=== PATIENT | male | born 1950 | race Caucasian/White ===

== ENCOUNTER 2018-12-06 08:39 | Outpatient (CLI) | payer MEDICARE, OTHER ==
--- NOTE | 2018-12-06 09:34 | RAD ---
Exam: There are swallow: HISTORY: Difficulty swallowing, bread and pills get stuck FINDINGS: There were several episodes of penetration noted with swallowing. No lexx aspiration. Consider follo w-up modified barium swallow with speech therapist for further assessment in this regard. Very small right-sided cervical esophageal diverticulum. Slight indentation of the posterior cervical esop hagus from anterior disc osteophytes of the cervical spine. No evidence for reflux. No stricture, ulcer, or mass. IMPRESSION: Several episodes of penetration, consider follow-up modified barium swallow with speech therapist. Ve ry small right-sided cervical esophageal diverticulum. Minimal dorsal indention of the cervical esophagus from disc osteophytes.
== END 2018-12-06 08:40 | disposition home or self-care (01) ==
LOC: RAD 08:39
PROVIDERS: ATTEND Internal Medicine Gastroenterology
DX: R13.10 Dysphagia, unspecified (principal); Q39.6 Congenital diverticulum of esophagus; M25.78 Osteophyte, vertebrae
CPT/HCPCS: 74220

== ENCOUNTER 2019-11-21 09:49 | Outpatient (CLI) | payer MEDICARE, OTHER ==
[2019-11-21 11:02] LABS: Hemoglobin 13.1 g/dL (14.0-18.0); Mean Corpuscular HGB CONC 33.2 g/dL (32.0-36.0); Mean Corpuscular Hemoglobin 32.2 pg (27.0-31.0); Mean Corpuscular Volume 96.8 fL (78.0-98.0); Mean Platelet Volume 6.7 fL (7.4-10.4); Platelet Count 307 thou/uL (130-400); RBC Distribution Width 12.1 % (11.5-14.5); Red Blood Cell (RBC) Count 4.08 mill/uL (4.70-6.10); White Blood Cell (WBC) Count 7.6 thou/uL (4.8-10.8)
[2019-11-21 11:13] LABS: PTT 24.8 SEC (22.9-36.1)
--- NOTE | 2019-11-21 16:49 | EKG ---
Test Reason : Blood Pressure : / mmHG Vent. Rate : 086 BPM Atrial Rate : 086 BPM P-R Int : 152 ms QRS Dur : 092 ms QT Int : 366 ms P-R-T Axes : 078 078 060 degrees QTc Int : 437 ms Normal sinus rhythm RSR' or QR pattern in V1 suggests right ventricular conduction delay Borderline ECG When compared with ECG of 06-FEB-1997 12:58, RSR' pattern in V1 is now Present Confirmed by Harpreet JN ([id number]) on 11/21/2019 4:49:28 PM Referred By: Confirmed By:Harpreet [place]
== END 2019-11-21 09:50 | disposition home or self-care (01) ==
LOC: LABBT 09:49
PROVIDERS: ATTEND Urology
DX: Z01.818 Encounter for other preprocedural examination (principal); N32.9 Bladder disorder, unspecified
CPT/HCPCS: 85027; 85610; 85730; 93005; 93010

== ENCOUNTER 2019-11-25 05:58 | Day surgery (SDC) | payer MEDICARE, OTHER ==
[2019-11-21 10:22] VITALS: BMI 21.5
[2019-11-25] MEDS ORDERED: Famotidine/PF 20 mg/2ml Vial ONE (06:39)
[2019-11-25] MEDS ORDERED: Fentanyl 100 MCG/2 ML VIAL ONE (06:39)
[2019-11-25] MEDS ORDERED: SUGAMMADEX SODIUM 200 MG/2 ML VIAL ONE (06:39)
[2019-11-25] MEDS ORDERED: Iothalamate Meglumine 60% 50 ML VIAL FS ONE (07:09)
[2019-11-25 07:10] LABS: Anion Gap 11 mmol/L (10-20); BUN (Urea Nitrogen) 19 mg/dL (8.4-25.7); Calc. Creatinine Clearance 53 mL/min (70-130); Calcium 9.6 mg/dL (7.8-10.44); Carbon Dioxide 29 mmol/L (23-31); Chloride 103 mmol/L (98-107); Estimated GFR-MDRD 56; Glucose 102 mg/dL (80-115); Potassium 3.6 mmol/L (3.5-5.1); Sodium 139 mmol/L (136-145)
[2019-11-25] MEDS ORDERED: Midazolam HCl 2 mg/2 ml Vial ONE (07:16)
[2019-11-25] MEDS ORDERED: Levofloxacin 500 mg/D5W 100 ml Premix Bag ONE (07:23)
--- NOTE | 2019-11-25 09:04 | RAD ---
EXAM: XR IVP Retrograde PROVIDED CLINICAL HISTORY: Bladder tumor COMPARISON: None FINDINGS: Single spot fluoroscopic image of a portion of the abdomen submitted. Side is not labeled. Partially opacified renal collecting system and partially visualized ureter appear grossly unremarkable. Correlate with real-time findings. IMPRESSION: As above.
[2019-11-25] MEDS ORDERED: Oxybutynin 5 MG TAB ONE (09:21)
[2019-11-25] MEDS ORDERED: Phenazopyridine HCl 97.5 MG TABLET ONE (09:21)
--- NOTE | 2019-11-25 09:32 | OP ---
DATE OF PROCEDURE: 11/25/2019 PREOPERATIVE DIAGNOSIS: Bladder tumor. POSTOPERATIVE DIAGNOSIS: Bladder tumor. PROCEDURES PERFORMED: Transurethral resection of large bladder tumor, left retrograde pyelogram. ANESTHESIA: General. COMPLICATIONS: None. ESTIMATED BLOOD LOSS: Minimal. SPECIMENS: 1. Bladder tumor. 2. Deep biopsy. DESCRIPTION OF PROCEDURE: After informed consent, the patient was taken to the operating room, transferred to the table under his own power. Anesthesia was established. A time-out was performed showing the correct patient, site, and procedure. Preoperative antibiotics were administered. He was prepped and draped in a modified lithotomy position. His left hip does not flex at all and so essentially his left leg was left in the supine position straight out, which made resecting the right wall very difficult. The cystoscope was inserted and negotiated into his bladder. There was indeed a large tumor emanating from the right bladder neck extending well up the right wall about 1/2 to [address] the dome on the right side. I was unable to identify either ureteral orifice. I then switched to the resectoscope and was able to resect probably 80% of the tumor. Resection was limited by the fact that I could not easily access the right wall with his left leg in the way. I was able to identify the left ureter by resecting tumor overlying it. I did not find the right ureter. Meticulous hemostasis was then achieved and the You[employer] evacuator was used to remove all specimen, which was passed off. I then took one final biopsy from the deep aspect of the bladder tumor. I did limit deep resection near the trigone and bladder neck due to his history of requiring a colostomy after rectal injury during bladder neck sphincter. I then switched back to the cystoscope and was able to perform a left retrograde pyelogram showing good filling of the ureter with possibly slight hydroureter and minimal to no hydronephrosis. There were no filling defects in the ureter. The scope was then withdrawn. An 18-[place] Palumbo catheter was placed draining light pink urine. This was connected to leg bag after filling the balloon with 10 mL. He was then awoken from anesthesia and transferred back to his hospital bed and taken to PACU in stable condition, where he will discharge home upon recovery. Job ID: [id number]
[2019-11-25] MEDS ORDERED: PROPOFOL 200 MG/20 ML VIAL ONE (10:04)
[2019-11-25] MEDS ORDERED: Ketorolac Tromethamine 30 MG/ML VIAL ONE (10:04)
[2019-11-25] MEDS ORDERED: Ondansetron PF 4 MG/2 ML Vial ONE (10:04)
[2019-11-25] MEDS ORDERED: Lidocaine 1% PF 5 ML VIAL ONE (10:04)
[2019-11-25] MEDS ORDERED: Dexamethasone 20 MG/5 ML VIAL ONE (10:04)
[2019-11-25] MEDS ORDERED: Glycopyrrolate 0.2 MG/ML 5 ML SYRINGE ONE (10:04)
[2019-11-25] MEDS ORDERED: Metoclopramide HCl 10 MG/2 ML VIAL ONE (10:04)
[2019-11-25] MEDS ORDERED: Rocuronium Bromide 10 MG/ML (10ML VIAL) ONE (10:04)
== END 2019-11-25 11:00 | disposition home or self-care (01) ==
LOC: SDC 05:58
PROVIDERS: ATTEND Urology
PROC: 0T5B8ZZ Destruction of Bladder, Via Natural or Artificial Opening Endoscopic (ICD-10-PCS; principal; 2019-11-25)
PROC: BT1F1ZZ Fluoroscopy of Left Kidney, Ureter and Bladder using Low Osmolar Contrast (ICD-10-PCS; 2019-11-25)
DX: C67.8 Malignant neoplasm of overlapping sites of bladder (principal); K59.2 Neurogenic bowel, not elsewhere classified; N31.9 Neuromuscular dysfunction of bladder, unspecified; G47.9 Sleep disorder, unspecified; Z79.899 Other long term (current) drug therapy; Z88.8 Allergy status to other drugs, medicaments and biological substances; Z98.890 Other specified postprocedural states
CPT/HCPCS: 36415; 74420; 80048; 88307; C1758; J1100; J1885; J1956; J2001; J2250; J2405; J2704; J2765; J3010; S0028

== ENCOUNTER 2019-12-10 08:52 | Outpatient (CLI) | payer MEDICARE, OTHER ==
[2019-12-10] MEDS ORDERED: Iopamidol 370 76% 100 ML VIAL ONE (09:01)
[2019-12-10] MEDS ORDERED: Iopamidol 370 76% 50 ML VIAL FS ONE (09:01)
--- NOTE | 2019-12-10 14:20 | CT ---
CHEST AND ABDOMEN AND PELVIC CT SCAN WITHOUT IV CONTRAST: Date: 12/10/2019 HISTORY: Bladder cancer. Status post TURP, sphincterotomy, as well as other surgeries, neoplasm lateral wall. FINDINGS: No evidence for pulmonary metastasis. No pleural effusion or pericardial effusion. No mediastinal mas s or adenopathy. Three vessel coronary artery calcific disease. There is a 2.0 cm diameter posterior left-sided thyroid nodule extending into the upper substernal region of the chest. Nonemergent follow -up thyroid ultrasound should be considered. There are several low attenuation foci within the liver. The largest is in the medial aspect of the l eft lobe measuring 1.4 cm in size, possibly a cyst but incompletely characterized. Evidence for a gal lstone without gallbladder wall thickening or pericholecystic fluid or CT evidence for acute cholecys titis. The pancreas and spleen appear unremarkable. Adrenal glands appear unremarkable. Moderate to s evere right renal hydronephrosis with dilatation of the upper renal collecting system and dilated ure ter down to the level of the bladder. Mild dilatation of the left upper renal collecting system and r enal pelvis. Fairly marked very heterogeneous abnormal bladder wall thickening bilaterally, but mostl y on the right side posteriorly, including the right ureterovesical junction region with some bladder wall calcifications or calculi. This focal abnormal soft tissue fullness certainly appears to be the etiology for the right renal hydroureteronephrosis. This is certainly consistent with residual neopl asm. No evidence for overt adenopathy. No abscess or abnormal fluid collection. There is very extensive heterotopic ossification involving both the left and right hip and parapelvic and parafemoral regions, worse on the left side. IMPRESSION: 1. Very irregular-shaped focal urinary bladder wall thickening, evidence for persistent bladder neop lastic mass, resulting in obstruction at the right ureteropelvic junction and prominent proximal righ t ureteral hydronephrosis. 2. No overt metastasis. 3. Cholelithiasis without acute cholecystitis. 4. Several low attenuation foci within the livre, incompletely characterized. 5. Very exuberant heterotopic ossification involving the right and left hips and adjacent regions, w orse on left side. 6. Other findings as above. POS: [facility]
--- NOTE | 2019-12-10 15:59 | NM ---
BONE SCAN: The patient was given 32 mCi of Technetium labelled MDP IV. Whole body skeletal images were obtained . INDICATION: Malignant neoplasm lateral wall of bladder. Recent bladder cancer diagnosis October 2019. The patient has a history of heterotopic ossification diagnosed in 2000. Correlation is made to CT scan from earlier today which does demonstrate heterotopic bone formation. Comparison is made to a prior bone scan from 2010 from an outside institution. FINDINGS: There is increased activity seen overlying the right ileum which is stable from the prior bone scan. Some soft tissue activity and both proximal thighs appear stable. No other abnormal osseous activit y. No interval change from the prior exam. Mild scoliotic curvature of the spine appears stable. 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 Bone scan findings appear stable from 2011. No evidence of osseous metastatic disease. POS: [facility]
== END 2019-12-10 08:53 | disposition home or self-care (01) ==
LOC: CT 08:52
PROVIDERS: ATTEND Urology
DX: C67.2 Malignant neoplasm of lateral wall of bladder (principal); N32.89 Other specified disorders of bladder; K80.20 Calculus of gallbladder without cholecystitis without obstruction; R93.2 Abnormal findings on diagnostic imaging of liver and biliary tract; N13.1 Hydronephrosis with ureteral stricture, not elsewhere classified
CPT/HCPCS: 71260; 74177; 78306; A9503; Q9967

== ENCOUNTER 2019-12-26 14:37 | Outpatient (CLI) | payer MEDICARE, OTHER ==
--- NOTE | 2019-12-26 17:41 | RAD ---
XR Chest Pa Lat STANDARD HISTORY: Preoperative evaluation, bladder cancer COMPARISON: None FINDINGS: The heart size is normal. The lungs are well expanded without focal areas of consolidation, pneumothorax or pleural effusions. There are degenerative changes in the spine and shoulders. IMPRESSION: No radiographic evidence of acute cardiopulmonary process.
[2019-12-26 17:44] LABS: #Eosinphils 0.2 thou/uL (0.0-0.7); #Lymphocytes 1.3 thou/uL (1.20-3.40); #Monocytes 0.8 thou/uL (0.11-0.59); #Neutrophils 6.3 thou/uL (1.40-6.50); %Basophils 0.3 % (0.0-1.0); %Eosinophils 2.8 % (0.0-10.0); %Lymphocytes 14.6 % (21.0-51.0); %Monocytes 9.6 % (0.0-10.0); %Neutrophils 72.7 % (42.0-75.0); Hemoglobin 11.3 g/dL (14.0-18.0); Mean Corpuscular HGB CONC 31.5 g/dL (32.0-36.0); Mean Corpuscular Hemoglobin 30.5 pg (27.0-31.0); Mean Corpuscular Volume 96.8 fL (78.0-98.0); Mean Platelet Volume 6.6 fL (7.4-10.4); Platelet Count 373 thou/uL (130-400); RBC Distribution Width 12.2 % (11.5-14.5); Red Blood Cell (RBC) Count 3.71 mill/uL (4.70-6.10); White Blood Cell (WBC) Count 8.7 thou/uL (4.8-10.8)
[2019-12-26 18:02] LABS: Anion Gap 15 mmol/L (10-20); BUN (Urea Nitrogen) 28 mg/dL (8.4-25.7); Calc. Creatinine Clearance 0 mL/min (70-130); Calcium 9.7 mg/dL (7.8-10.44); Carbon Dioxide 25 mmol/L (23-31); Chloride 100 mmol/L (98-107); Estimated GFR-MDRD 52; Glucose 105 mg/dL (80-115); Potassium 4.3 mmol/L (3.5-5.1); Sodium 136 mmol/L (136-145)
[2019-12-27 13:14] LABS: SARS-CoV-2 MS2 Positive; SARS-CoV-2 N Gene Negative; SARS-CoV-2 S Gene Negative; SARS-CoV-2 orf1ab Negative
== END 2019-12-26 14:38 | disposition home or self-care (01) ==
LOC: LABBT 14:37
PROVIDERS: ATTEND Specialist
DX: Z01.818 Encounter for other preprocedural examination (principal); Z11.59 Encounter for screening for other viral diseases; C67.9 Malignant neoplasm of bladder, unspecified
CPT/HCPCS: 71046; 78815; 80048; 85025; A9552; U0002; 87635; U0003

== ENCOUNTER 2019-12-30 08:50 | Day surgery (SDC) | payer MEDICARE, OTHER ==
[2019-12-26 16:53] VITALS: BMI 21.2
[2019-12-30] MEDS ORDERED: Lidocaine 1% w/Epinephrine 1:100K 20 ML VIAL ONE (09:33)
[2019-12-30] MEDS ORDERED: Bupivacaine 0.25% HCL 30 ML VIAL ONE (09:33)
[2019-12-30] MEDS ORDERED: Propofol 500 MG/50 ML VIAL ONE (10:32)
--- NOTE | 2019-12-30 12:50 | RAD ---
Exam: Chest one view HISTORY:Status post Mediport placement. Evaluate for pneumothorax. Comparison: 12/26/2019 FINDINGS: Lines and tubes: Interval placement of a right-sided Mediport catheter with the distal tip in the exp ected region of the superior vena cava. Cardiac silhouette: Normal Aorta: Unremarkable Pulmonary vessels: Normal Costophrenic angles: Clear LUNGS: No masses or consolidation. Stable hyperinflation. Pneumothorax: None Osseous abnormalities: None IMPRESSION: 1. Interval placement of a right-sided Mediport catheter. 2. No pneumothorax
--- NOTE | 2019-12-31 13:49 | OP ---
DATE OF PROCEDURE: 12/30/2019 PREOPERATIVE DIAGNOSIS: Bladder cancer. POSTOPERATIVE DIAGNOSIS: Bladder cancer. PROCEDURE PERFORMED: Placement of right subclavian low-profile power compatible MediPort. ANESTHESIA: General with laryngeal mask airway. INDICATIONS FOR PROCEDURE: Patient is a 69-year-old white male. He had recently been diagnosed with bladder cancer. MediPort has been requested for chemotherapy administration. DESCRIPTION OF OPERATION: Informed consent was obtained. The patient was taken to the operating room where total intravenous anesthesia was obtained with the patient in supine position. Right periclavicular area was prepped with ChloraPrep and draped in sterile fashion. Local anesthetic was infiltrated and a large-gauge needle was passed under the clavicle in the subclavian vein. Guidewire was passed through the needle and fluoroscopically confirmed to enter the superior vena cava. Additional local anesthetic was infiltrated and transverse incision was created based on needle insertion site. A subcutaneous pocket was dissected inferiorly. Introducer dilator was passed over the guidewire under fluoroscopic guidance. The guidewire and dilator were removed, and the catheter was passed through the introducer. The tip of the catheter was positioned at the atriocaval junction and the catheter was trimmed to the appropriate length and secured to the locking hub of the MediPort. The port was then placed in the subcutaneous pocket where it was secured to the pectoral fascia with 2 interrupted sutures of 3-0 Prolene. The incision was then closed in layers with 3-0 and 4-0 Monocryl. Additional local anesthetic was infiltrated. The port was cannulated with a Rivera needle and it aspirated blood freely and was flushed with heparinized saline. Dermabond was placed externally on the skin incision. There were no complications. Blood loss was negligible. The patient tolerated the procedure well and was taken to recovery room in stable condition. FINDINGS: I placed this uneventfully into the right subclavian vein. A low-profile port was selected secondary to his body habitus. The procedure was uneventful. Fluoroscopy was used throughout the procedure. There were no complications. Patient was taken to recovery room in stable condition. Job ID: [id number]
== END 2019-12-30 13:25 | disposition home or self-care (01) ==
LOC: SDC 08:50
PROVIDERS: ATTEND Specialist
PROC: 02HV33Z Insertion of Infusion Device into Superior Vena Cava, Percutaneous Approach (ICD-10-PCS; principal; 2019-12-30)
PROC: B518ZZA Fluoroscopy of Superior Vena Cava, Guidance (ICD-10-PCS; 2019-12-30)
DX: C67.9 Malignant neoplasm of bladder, unspecified (principal); G82.50 Quadriplegia, unspecified; S14.102S Unspecified injury at C2 level of cervical spinal cord, sequela; Z79.899 Other long term (current) drug therapy; Z88.8 Allergy status to other drugs, medicaments and biological substances; V97.89 Other air transport accidents, not elsewhere classified
CPT/HCPCS: 36561; 71045; C1788; J0690; J1642; J2704; S0020

== ENCOUNTER 2020-02-23 11:47 | Day surgery (SDC) | payer MEDICARE, OTHER ==
[2020-02-23] MEDS ORDERED: Sodium Chloride 0.9% 30 ML ONE (12:20)
[2020-02-23] MEDS ORDERED: diphenhydrAMINE 25 MG CAP PO SCH (13:00)
[2020-02-23] MEDS ORDERED: Acetaminophen 500 MG TAB PO SCH (13:00)
[2020-02-23 16:01] VITALS: BP 144/73; TEMP 98
== END 2020-02-23 16:02 | disposition home or self-care (01) ==
LOC: ONC/OP 11:47
PROVIDERS: ATTEND Internal Medicine Hematology & Oncology
PROC: 30233N1 Transfusion of Nonautologous Red Blood Cells into Peripheral Vein, Percutaneous Approach (ICD-10-PCS; principal; 2020-02-23)
DX: D64.9 Anemia, unspecified (principal); D69.6 Thrombocytopenia, unspecified
CPT/HCPCS: 36415; 36430; 86850; 86900; 86901; J1642; P9016; Q0163

== ENCOUNTER 2020-02-27 22:15 | Inpatient (IN) | payer MEDICARE, OTHER ==
[2020-02-27] MEDS ORDERED: Vancomycin 1 GM/200 ML BAG ONE (23:16)
[2020-02-27] MEDS ORDERED: Acetaminophen 500 MG TAB ONE (23:16)
[2020-02-27] MEDS ORDERED: Cefepime 2 GM VIAL ONE (23:16)
[2020-02-27 23:39] LABS: Band 24 % (5-11); Hemoglobin 8.3 g/dL (14.0-18.0); Lymphocytes 6 % (21-51); MDiff Complete? YES; Mean Corpuscular Hemoglobin 32.3 pg (27.0-31.0); Mean Corpuscular Volume 95.2 fL (78.0-98.0); Mean Platelet Volume 8.8 fL (7.4-10.4); Monocytes 6 % (0-10); Neutrophil 64 % (42-75); Platelet Count 45 thou/uL (130-400); Platelet Morphology Comment Appears Decreased; RBC Distribution Width 14.7 % (11.5-14.5); Red Blood Cell (RBC) Count 2.56 mill/uL (4.70-6.10); White Blood Cell (WBC) Count 16.3 thou/uL (4.8-10.8)
[2020-02-27 23:48] LABS: ALT (SGPT) 9 U/L (8-55); AST (SGOT) 15 U/L (5-34); Albumin 3.8 g/dL (3.4-4.8); Alkaline Phosphatase 146 U/L (40-110); Anion Gap 15 mmol/L (10-20); BUN (Urea Nitrogen) 19 mg/dL (8.4-25.7); Bilirubin, Total 0.4 mg/dL (0.2-1.2); Calc. Creatinine Clearance 0 mL/min (70-130); Calcium 8.9 mg/dL (7.8-10.44); Carbon Dioxide 21 mmol/L (23-31); Chloride 100 mmol/L (98-107); Estimated GFR-MDRD 57; Globulin 3.4 g/dL (2.4-3.5); Glucose 131 mg/dL (80-115); Potassium 4.2 mmol/L (3.5-5.1); Protein, Total 7.2 g/dL (5.8-8.1); Sodium 132 mmol/L (136-145)
[2020-02-28 00:02] LABS: Bacteria/HPF 3+ HPF (None Seen); Bilirubin Negative (Negative); Blood, Urine 3+ (Negative); Clarity Extra Turbid (Clear); Glucose, Urine (Dipstick) Normal (Negative); Ketone, Urine Negative (Negative); Leukocyte 500 Leu/uL (Negative); Nitrite 1+ (Negative); Protein, Urine (Dipstick) 200 mg/dL (Neg-Trace); RBC/HPF Greater than 50 HPF (0-3); Squamous Epithelial None Seen HPF (0-3); Urobilinogen Normal mg/dL (Less than 2); WBC/HPF Greater than 50 HPF (0-3)
[2020-02-28 00:11] LABS: CKMB 0.7 ng/mL (0-6.6)
--- NOTE | 2020-02-28 00:29 | RAD ---
EXAM: CHEST ONE VIEW HISTORY: Fever COMPARISON: 12/30/2019 FINDINGS: Right subclavian Mediport catheter remains in place. Surgical clips are again seen overlying the lowe r mediastinum and epigastric region. Cardiac silhouette and pulmonary vasculature are within normal limits. The lungs are clear. Bilateral glenohumeral osteoarthropathy is again present. IMPRESSION: No acute cardiopulmonary process.
[2020-02-28] MEDS ORDERED: Acetaminophen 650 MG Suppository PR PRN (00:41)
[2020-02-28] MEDS ORDERED: HYDROcodone/Acetaminophen 5/325 mg Tablet PO PRN (00:41)
[2020-02-28] MEDS ORDERED: Ondansetron ODT 4 MG TAB PO PRN (00:41)
[2020-02-28] MEDS ORDERED: Ondansetron PF 4 MG/2 ML Vial IVP PRN (00:41)
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
[2020-02-28 05:43] LABS: Band 29 % (5-11); Hemoglobin 7.7 g/dL (14.0-18.0); Lymphocytes 7 % (21-51); MDiff Complete? YES; Mean Corpuscular HGB CONC 33.3 g/dL (32.0-36.0); Mean Corpuscular Hemoglobin 31.8 pg (27.0-31.0); Mean Corpuscular Volume 95.6 fL (78.0-98.0); Mean Platelet Volume 8.3 fL (7.4-10.4); Monocytes 10 % (0-10); Neutrophil 54 % (42-75); Platelet Count 35 thou/uL (130-400); Platelet Morphology Comment Appears Decreased; RBC Distribution Width 14.8 % (11.5-14.5); Red Blood Cell (RBC) Count 2.42 mill/uL (4.70-6.10); White Blood Cell (WBC) Count 13.8 thou/uL (4.8-10.8)
[2020-02-28 05:53] LABS: ALT (SGPT) 11 U/L (8-55); AST (SGOT) 12 U/L (5-34); Albumin 3.4 g/dL (3.4-4.8); Alkaline Phosphatase 129 U/L (40-110); Anion Gap 12 mmol/L (10-20); BUN (Urea Nitrogen) 17 mg/dL (8.4-25.7); Bilirubin, Total 0.3 mg/dL (0.2-1.2); Calc. Creatinine Clearance 0 mL/min (70-130); Calcium 8.6 mg/dL (7.8-10.44); Carbon Dioxide 22 mmol/L (23-31); Chloride 102 mmol/L (98-107); Estimated GFR-MDRD 60; Globulin 2.8 g/dL (2.4-3.5); Glucose 125 mg/dL (80-115); Protein, Total 6.2 g/dL (5.8-8.1); Sodium 132 mmol/L (136-145)
[2020-02-28] MEDS: Sodium Chloride 0.9% 1,000 ML IV SCH ×3 (06:28→21:16)
[2020-02-28] MEDS: Acetaminophen 325 MG TAB PO PRN ×4 (06:30→21:20)
[2020-02-28 06:34] VITALS: BMI 21.2
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
[2020-02-28] MEDS ORDERED: Iopamidol-370 76% 500 ML 1 ML ONE (12:04)
--- NOTE | 2020-02-28 14:51 | PDOC.EVN ---
Event Note - Event Note Event Note: Patient was seen and examined. He was having some rigors at the time of my exam. States that his only real concern. States it takes a lot out of than when he has these chills. Urine culture is growing presumptive Klebsiella and Enterobacter. He received bank cefepime and Levaquin in the emergency department. He is currently still covered with the Vanco and Levaquin is ongoing. Will await cultures and sensitivities. Treat fever as needed.
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
[2020-02-29] MEDS: Acetaminophen 325 MG TAB PO PRN ×4 (02:40→21:31)
[2020-02-29 09:35] LABS: #Lymphocytes 0.7 thou/uL (1.20-3.40); #Neutrophils 6.8 thou/uL (1.40-6.50); %Basophils 0.2 % (0.0-1.0); %Eosinophils 0.2 % (0.0-10.0); %Lymphocytes 7.7 % (21.0-51.0); %Monocytes 11.5 % (0.0-10.0); %Neutrophils 80.4 % (42.0-75.0); Hemoglobin 7.3 g/dL (14.0-18.0); Mean Corpuscular HGB CONC 33.9 g/dL (32.0-36.0); Mean Corpuscular Hemoglobin 32.7 pg (27.0-31.0); Mean Corpuscular Volume 96.4 fL (78.0-98.0); Mean Platelet Volume 8.4 fL (7.4-10.4); Platelet Count 37 thou/uL (130-400); RBC Distribution Width 14.5 % (11.5-14.5); Red Blood Cell (RBC) Count 2.22 mill/uL (4.70-6.10); White Blood Cell (WBC) Count 8.4 thou/uL (4.8-10.8)
[2020-02-29 09:40] LABS: Anion Gap 10 mmol/L (10-20); BUN (Urea Nitrogen) 15 mg/dL (8.4-25.7); Calc. Creatinine Clearance 49 mL/min (70-130); Calcium 8.6 mg/dL (7.8-10.44); Carbon Dioxide 25 mmol/L (23-31); Chloride 103 mmol/L (98-107); Estimated GFR-MDRD 54; Glucose 131 mg/dL (80-115); Sodium 134 mmol/L (136-145)
[2020-02-29] MEDS ORDERED: Bisacodyl 10 MG SUPP PR PRN (10:34)
--- NOTE | 2020-02-29 13:06 | PDOC.HOSPP ---
- Subjective Encounter Date: 02/29/20 Subjective: Patient is feeling some better today. He is concerned about his bowel regimen. He has a fairly specific routine given his quadriplegia. He typically has a Dulcolax suppository every couple of days. He then occasionally require some digital stimulation. His typically helps him with that regimen. He also takes docusate sodium twice daily. - Objective Vital Signs & Weight: Vital Signs (12 hours) Temp Pulse Resp BP BP Pulse Ox 02/29/20 12:00 98.2 F 94 22 H 108/70 97 02/29/20 07:27 98.3 F 96 22 H 125/68 97 02/29/20 06:01 99.8 F H 02/29/20 04:31 101.3 F H 100 16 106/57 L 94 L 02/29/20 03:00 100.2 F H Weight Weight 144 lb I&O: 02/28/20 02/29/20 03/01/20 06:59 06:59 06:59 Intake Total 1950 Output Total 2300 Balance -350 Result Diagrams: 02/29/20 09:10 02/29/20 09:10 Hospitalist ROS - Medication Medications: Active Medications Generic Name Dose Route Start Last Admin Trade Name Freq PRN Reason Stop Dose Admin Acetaminophen 650 mg 02/28/20 00:41 02/29/20 12:49 Tylenol PO 650 mg Q4H PRN Administration Headache/Fever/Mild Pain (1-3) Levofloxacin 750 mg/ Device 150 mls @ 100 mls/hr 02/29/20 06:00 02/29/20 05: 39 IVPB 150 mls Q24HR MYA Administration Sodium Chloride 1,000 mls @ 70 mls/hr 02/28/20 01:00 02/28/20 21:16 Normal Saline 0.9% IV 1,000 mls .[id number] MYA Administration Sodium Chloride 10 ml 02/28/20 09:00 02/29/20 09:56 Flush - Normal Saline IVF Not Given Q12HR MYA - Exam General Appearance: NAD, awake alert General - other findings: Pale Heart: RRR, no murmur, no gallops, no rubs, normal peripheral pulses Respiratory: CTAB, no wheezes, no rales, no ronchi, normal chest expansion, no tachypnea, normal percussion Gastrointestinal: soft, non-tender, non-distended, normal bowel sounds, no palpable masses, no hepatomegaly, no splenomegaly, no bruit Extremities: no cyanosis, no clubbing, no edema Neurological - other findings: Paraplegia Psychiatric: normal affect, normal behavior, A&O x 3 Hosp A/P (1) UTI due to Klebsiella species Code(s): N39.0 - URINARY TRACT INFECTION, SITE NOT SPECIFIED; B96.89 - OTH BACTERIAL AGENTS THE CAUSE OF DISEASES CLASSD ELSWHR Status: Acute (2) Bacteremia due to Klebsiella pneumoniae Code(s): R78.81 - BACTEREMIA; B96.1 - KLEBSIELLA PNEUMONIAE THE CAUSE OF DISEASES CLASSD ELSWHR Status: Acute (3) Anemia due to chemotherapy Code(s): D64.81 - ANEMIA DUE TO ANTINEOPLASTIC CHEMOTHERAPY; T45.1X5A - ADVERSE EFFECT OF ANTINEOPLASTIC AND IMMUNOSUP DRUGS, INIT Status: Acute (4) Bladder cancer Status: Chronic (5) Chronic incomplete quadriplegia Code(s): G82.50 - QUADRIPLEGIA, UNSPECIFIED Status: Chronic (6) Complicated UTI (urinary tract infection) Code(s): N39.0 - URINARY TRACT INFECTION, SITE NOT SPECIFIED Status: Acute (7) Sepsis Code(s): A41.9 - SEPSIS, UNSPECIFIED ORGANISM Status: Acute (8) Hydronephrosis Code(s): N13.30 - UNSPECIFIED HYDRONEPHROSIS Status: Acute (9) Hyponatremia Code(s): E87.1 - HYPO-OSMOLALITY AND HYPONATREMIA Status: Acute (10) Pancytopenia Code(s): D61.818 - OTHER PANCYTOPENIA Status: Acute (11) Chronic kidney disease, stage III (moderate) Code(s): N18.3 - CHRONIC KIDNEY DISEASE, STAGE 3 (MODERATE) Status: Acute - Plan Sepsis: Secondary to Klebsiella UTI and bacteremia. Hemodynamically stable. Klebsiella UTI: Patient has associated bacteremia. Urinary tract infection is complicated by the fact that he has a bladder mass. There is also evidence of some obstruction with hydronephrosis. He continues to be symptomatic and febrile. It is possible that the bladder mass causing the hydronephrosis might be preventing full clearing of the infection at this time. Doubtful that a urologist could stent around the tumor. We will add Rocephin 1 g IV every [address] Mosher. He has placed that order. If he does not significantly improve may need to consider urology consultation. Pancytopenia: Has pancytopenia from chemotherapy with associated severe anemia. He will be receiving a transfusion today. Paraplegia: Will replicate his bowel regimen and allow his to come up and visit to assist with that as needed. Chronic kidney disease stage III: Patient appears to be at his baseline renal function presently. Bladder cancer: Oncology following.
[2020-02-29] MEDS: cefTRIAXone\\ROCEPHIN 1 GM in Sodium Chloride 0.9% 100 ML IVPB SCH (15:06)
[2020-02-29] MEDS: Docusate 100 MG CAP PO SCH (21:31)
[2020-02-29] MEDS: Sodium Chloride 0.9% 1,000 ML IV SCH (23:48)
[2020-02-29] MEDS: Simethicone Chewable 80 MG TAB PO PRN (23:49)
[2020-03-01] MEDS: Acetaminophen 325 MG TAB PO PRN ×3 (02:32→23:46)
--- NOTE | 2020-03-01 02:53 | PRG ---
DATE OF SERVICE: 02/29/2020 The patient is continuing to run fever and is having chill at the time I examined him. He has temperature today 100.3. He has been on Levaquin. Both urine and blood cultures are positive for Klebsiella, which is sensitive to all the antibiotics tested including Levaquin. After discussing the case with Dr. Pradhan, I have added Rocephin to his regimen. His most recent CT scan showed enlargement of the mass in the bladder. He also has hydronephrosis, however is wondering if hydronephrosis was contributing to infection not clearing. I have asked for consultation from Dr. Pierce for his opinion regarding a stent placement for hydronephrosis. Job ID: [id number]
[2020-03-01 05:57] LABS: #Lymphocytes 1.2 thou/uL (1.20-3.40); #Monocytes 1.6 thou/uL (0.11-0.59); #Neutrophils 7.7 thou/uL (1.40-6.50); %Basophils 0.1 % (0.0-1.0); %Eosinophils 0.1 % (0.0-10.0); %Lymphocytes 11.3 % (21.0-51.0); %Monocytes 14.8 % (0.0-10.0); %Neutrophils 73.7 % (42.0-75.0); Hemoglobin 9.7 g/dL (14.0-18.0); Mean Corpuscular HGB CONC 32.9 g/dL (32.0-36.0); Mean Corpuscular Hemoglobin 30.2 pg (27.0-31.0); Mean Corpuscular Volume 91.9 fL (78.0-98.0); Mean Platelet Volume 9.1 fL (7.4-10.4); Platelet Count 62 thou/uL (130-400); RBC Distribution Width 15.3 % (11.5-14.5); Red Blood Cell (RBC) Count 3.22 mill/uL (4.70-6.10); White Blood Cell (WBC) Count 10.4 thou/uL (4.8-10.8)
[2020-03-01 06:14] LABS: Anion Gap 13 mmol/L (10-20); BUN (Urea Nitrogen) 15 mg/dL (8.4-25.7); Calc. Creatinine Clearance 50 mL/min (70-130); Calcium 8.9 mg/dL (7.8-10.44); Carbon Dioxide 23 mmol/L (23-31); Chloride 104 mmol/L (98-107); Estimated GFR-MDRD 55; Glucose 99 mg/dL (80-115); Sodium 136 mmol/L (136-145)
[2020-03-01] MEDS: Rosuvastatin 20 MG TAB PO SCH (09:52)
[2020-03-01] MEDS: Docusate 100 MG CAP PO SCH ×2 (09:52→21:13)
[2020-03-01] MEDS: Cholecalciferol 1,000 UNITS (25 MCG) TAB PO SCH (09:53)
[2020-03-01] MEDS: cefTRIAXone\\ROCEPHIN 1 GM in Sodium Chloride 0.9% 100 ML IVPB SCH (13:44)
[2020-03-01] MEDS: Sodium Chloride 0.9% 1,000 ML IV SCH ×2 (13:49→21:12)
--- NOTE | 2020-03-01 14:59 | PDOC.HOSPP ---
- Subjective Encounter Date: 03/01/20 Subjective: Generally feeling a little better. She still feels like he has chills from time to time. - Objective Vital Signs & Weight: Vital Signs (12 hours) Temp Pulse Pulse Resp BP BP BP 03/01/20 12:00 99.1 F 102 H 24 H 162/83 H 03/01/20 10:09 98.6 F 98 20 132/72 03/01/20 03:00 99.1 F 89 20 129/68 Pulse Ox 03/01/20 12:00 03/01/20 10:09 93 L 03/01/20 03:00 94 L Weight Weight 144 lb I&O: 02/29/20 03/01/20 03/02/20 06:59 06:59 06:59 Intake Total 1950 2079 Output Total 2302059 Balance -350 20 Result Diagrams: 03/01/20 05:34 03/01/20 05:34 Hospitalist ROS - Medication Medications: Active Medications Generic Name Dose Route Start Last Admin Trade Name Freq PRN Reason Stop Dose Admin Acetaminophen 650 mg 02/28/20 00:41 03/01/20 02:32 Tylenol PO 650 mg Q4H PRN Administration Headache/Fever/Mild Pain (1-3) Cholecalciferol 2,000 units 03/01/20 09:00 03/01/20 09:53 Vitamin D3 PO 2,000 units DAILY MYA Administration Docusate Sodium 100 mg 02/29/20 21:00 03/01/20 09:52 Colace PO 100 mg BID MYA Administration Levofloxacin 750 mg/ Device 150 mls @ 100 mls/hr 02/29/20 06:00 03/01/20 05: 32 IVPB 150 mls Q24HR MYA Administration Sodium Chloride 1,000 mls @ 70 mls/hr 02/28/20 01:00 03/01/20 13:49 Normal Saline 0.9% IV Not Given .[id number] MYA Ceftriaxone Sodium 1 gm/ 100 mls @ 200 mls/hr 02/29/20 14:00 03/01/20 13:44 Sodium Chloride IVPB 100 mls 1400 MYA Administration Rosuvastatin Calcium 40 mg 03/01/20 09:00 03/01/20 09:52 Crestor PO 40 mg DAILY MYA Administration Simethicone 80 mg 02/29/20 23:06 02/29/20 23:49 Mylicon Chewable PO 80 mg PCHS PRN Administration Gas Pain Sodium Chloride 10 ml 02/28/20 09:00 03/01/20 09:49 Flush - Normal Saline IVF Not Given Q12HR MYA - Exam General Appearance: NAD, awake alert General - other findings: Pale Heart: RRR, no murmur, no gallops, no rubs, normal peripheral pulses Respiratory: CTAB, no wheezes, no rales, no ronchi, normal chest expansion, no tachypnea, normal percussion Gastrointestinal: soft, non-tender, non-distended, normal bowel sounds, no palpable masses, no hepatomegaly, no splenomegaly, no bruit Extremities: no cyanosis, no clubbing, no edema Neurological - other findings: Incomplete paraplegia Musculoskeletal: generalized weakness Psychiatric: normal affect, normal behavior, A&O x 3 Hosp A/P (1) UTI due to Klebsiella species Code(s): N39.0 - URINARY TRACT INFECTION, SITE NOT SPECIFIED; B96.89 - OTH BACTERIAL AGENTS THE CAUSE OF DISEASES CLASSD ELSWHR Status: Acute (2) Bacteremia due to Klebsiella pneumoniae Code(s): R78.81 - BACTEREMIA; B96.1 - KLEBSIELLA PNEUMONIAE THE CAUSE OF DISEASES CLASSD ELSWHR Status: Acute (3) Anemia due to chemotherapy Code(s): D64.81 - ANEMIA DUE TO ANTINEOPLASTIC CHEMOTHERAPY; T45.1X5A - ADVERSE EFFECT OF ANTINEOPLASTIC AND IMMUNOSUP DRUGS, INIT Status: Acute (4) Bladder cancer Status: Chronic (5) Chronic incomplete quadriplegia Code(s): G82.50 - QUADRIPLEGIA, UNSPECIFIED Status: Chronic (6) Complicated UTI (urinary tract infection) Code(s): N39.0 - URINARY TRACT INFECTION, SITE NOT SPECIFIED Status: Acute (7) Sepsis Code(s): A41.9 - SEPSIS, UNSPECIFIED ORGANISM Status: Acute (8) Hydronephrosis Code(s): N13.30 - UNSPECIFIED HYDRONEPHROSIS Status: Acute (9) Hyponatremia Code(s): E87.1 - HYPO-OSMOLALITY AND HYPONATREMIA Status: Acute (10) Pancytopenia Code(s): D61.818 - OTHER PANCYTOPENIA Status: Acute (11) Chronic kidney disease, stage III (moderate) Code(s): N18.3 - CHRONIC KIDNEY DISEASE, STAGE 3 (MODERATE) Status: Acute (12) Palumbo catheter in place Code(s): Z97.8 - PRESENCE OF OTHER SPECIFIED DEVICES Status: Acute - Plan Sepsis: Secondary to Klebsiella UTI and bacteremia. Hemodynamically stable. Klebsiella UTI: Patient has associated bacteremia. Urinary tract infection is complicated by the fact that he has a bladder mass. There is also evidence of some obstruction with hydronephrosis. His fever curve is improving. It is possible that the bladder mass causing the hydronephrosis might be preventing full clearing of the infection at this time. Doubtful that a urologist could stent around the tumor. He also has an indwelling Palumbo catheter. We will add Rocephin 1 g IV every [address] Mosher. He has placed that order. Urology was consulted. ID consult pending Pancytopenia: Has pancytopenia from chemotherapy with associated severe anemia. Hemoglobin is better after transfusion. Paraplegia: I replicated his home bowel regimen and his came to assist him yesterday. That all worked out well. Chronic kidney disease stage III: Patient appears to be at his baseline renal function presently. Bladder cancer: Oncology following.
[2020-03-01] MEDS: Simethicone Chewable 80 MG TAB PO PRN (16:57)
--- NOTE | 2020-03-01 17:48 | PDOC.MOPN ---
Interval History: feeling better but still with fever - Vital Signs Vital Signs: Vital Signs (12 hours) Temp Pulse Resp BP BP Pulse Ox 03/01/20 12:00 99.1 F 102 H 24 H 162/83 H 03/01/20 10:09 98.6 F 98 20 132/72 93 L Weight Weight 144 lb - Physical Exam General: Alert, Oriented x3, No acute distress, Other (somewhat chronically ill appearing) HEENT: Atraumatic Lungs: Clear to auscultation Cardiovascular: Regular rate Abdomen: Normal bowel sounds, Soft, No tenderness Extremities: No edema, No tenderness/swelling Skin: No rashes Neurological: Normal speech Psych/Mental Status: Mental status NL - Labs Result Diagrams: 03/01/20 05:34 03/01/20 05:34 Lab results: Laboratory Results - last 24 hr 03/01/20 05:34: WBC 10.4, RBC 3.22 L, Hgb 9.7 L, Hct 29.6 L, MCV 91.9, MCH 30.2 , MCHC 32.9, RDW 15.3 H, Plt Count 62 L, MPV 9.1, Neutrophils % 73.7, Neutrophils % (Manual) Not Reportable, Lymphocytes % 11.3 L, Monocytes % 14.8 H , Eosinophils % 0.1, Basophils % 0.1, Neutrophils # 7.7 H, Lymphocytes # 1.2, Monocytes # 1.6 H, Eosinophils # 0.0, Basophils # 0.0 03/01/20 05:34: Sodium 136, Potassium 4.0, Chloride 104, Carbon Dioxide 23, Anion Gap 13, BUN 15, Creatinine 1.30, Estimated GFR (MDRD) 55, Glucose 99, Calcium 8.9 02/29/20 14:00: Blood Type O POSITIVE, Antibody Screen NEGATIVE, Crossmatch See Detail A/P - Problem (1) Anemia due to chemotherapy Current Visit: Yes Code(s): D64.81 - ANEMIA DUE TO ANTINEOPLASTIC CHEMOTHERAPY ; T45.1X5A - ADVERSE EFFECT OF ANTINEOPLASTIC AND IMMUNOSUP DRUGS, INIT Status : Acute (2) Bacteremia due to Klebsiella pneumoniae Current Visit: Yes Code(s): R78.81 - BACTEREMIA; B96.1 - KLEBSIELLA PNEUMONIAE THE CAUSE OF DISEASES CLASSD ELSWHR Status: Acute (3) Chronic kidney disease, stage III (moderate) Current Visit: Yes Code(s): N18.3 - CHRONIC KIDNEY DISEASE, STAGE 3 (MODERATE ) Status: Acute (4) Hydronephrosis Current Visit: Yes Code(s): N13.30 - UNSPECIFIED HYDRONEPHROSIS Status: Acute (5) Sepsis Current Visit: Yes Code(s): A41.9 - SEPSIS, UNSPECIFIED ORGANISM Status: Acute (6) Bladder cancer Current Visit: Yes Status: Chronic - Plan Plan: 1. continue antibiotics 2. urology consult, may need perc nephrostomy 3. unlikely to get more chemo 4. follow cbc
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
[2020-03-01] MEDS ORDERED: Oxybutynin 5 MG TAB PO PRN (23:23)
[2020-03-01] MEDS ORDERED: Oxybutynin 5 MG TAB PO SCH (23:30)
[2020-03-02] MEDS: Sodium Chloride 0.9% 1,000 ML IV SCH ×2 (02:01→13:57)
[2020-03-02 05:35] LABS: #Lymphocytes 1.3 thou/uL (1.20-3.40); #Monocytes 1.4 thou/uL (0.11-0.59); #Neutrophils 8.4 thou/uL (1.40-6.50); %Basophils 0.1 % (0.0-1.0); %Eosinophils 0.1 % (0.0-10.0); %Lymphocytes 11.5 % (21.0-51.0); %Monocytes 12.8 % (0.0-10.0); %Neutrophils 75.4 % (42.0-75.0); Hemoglobin 9.7 g/dL (14.0-18.0); Mean Corpuscular HGB CONC 32.8 g/dL (32.0-36.0); Mean Corpuscular Hemoglobin 30.1 pg (27.0-31.0); Mean Corpuscular Volume 91.8 fL (78.0-98.0); Mean Platelet Volume 8.9 fL (7.4-10.4); Platelet Count 104 thou/uL (130-400); RBC Distribution Width 15.1 % (11.5-14.5); Red Blood Cell (RBC) Count 3.24 mill/uL (4.70-6.10); White Blood Cell (WBC) Count 11.1 thou/uL (4.8-10.8)
[2020-03-02 05:41] LABS: Anion Gap 13 mmol/L (10-20); BUN (Urea Nitrogen) 14 mg/dL (8.4-25.7); Calc. Creatinine Clearance 52 mL/min (70-130); Calcium 8.5 mg/dL (7.8-10.44); Carbon Dioxide 21 mmol/L (23-31); Chloride 104 mmol/L (98-107); Estimated GFR-MDRD 57; Glucose 109 mg/dL (80-115); Potassium 3.6 mmol/L (3.5-5.1); Sodium 134 mmol/L (136-145)
--- NOTE | 2020-03-02 09:35 | ULT ---
ULTRASOUND DOPPLER DUPLEX VENOUS BILATERAL LOWER EXTREMITIES: DATE: 03/02/2020 HISTORY: 69-year-old male with bilateral lower extremity edema TECHNIQUE: Grayscale, color-flow, and spectral analysis, of major veins of bilateral lower extremities. FINDINGS: There is demonstration of blood flow with normal compressibility, of the bilateral common femoral, pr ofunda femoral, greater saphenous, femoral, popliteal, and posterior tibial, veins. IMPRESSION: Negative. No deep venous thrombosis of bilateral lower extremities.
[2020-03-02] MEDS: Cholecalciferol 1,000 UNITS (25 MCG) TAB PO SCH (10:26)
[2020-03-02] MEDS: Rosuvastatin 20 MG TAB PO SCH (10:27)
[2020-03-02] MEDS: Docusate 100 MG CAP PO SCH (10:27)
[2020-03-02 11:20] VITALS: TEMP 98.1
[2020-03-02] MEDS: cefTRIAXone\\ROCEPHIN 1 GM in Sodium Chloride 0.9% 100 ML IVPB SCH (13:17)
--- NOTE | 2020-03-02 14:24 | CON ---
DATE OF CONSULTATION: 03/02/2020 REASON FOR CONSULTATION: Urinary tract infection, hydronephrosis. CHIEF COMPLAINT: Fevers. HISTORY OF PRESENT ILLNESS: This is a 69-year-old male with a history of quadriplegia and neurogenic bladder, managed with a condom catheter with abdominal voiding. He has recently been diagnosed with high-grade muscle invasive bladder cancer, which is unresectable transurethrally. Initial diagnosis was November 25, 2019. He has now undergone 3 rounds of neoadjuvant chemotherapy with plans to visit with the urologic oncologist at [facility] later this month for consideration of radical cystectomy with ileal conduit. He was hospitalized on February 27 after developing fever up to 103 after having symptoms of malaise and fatigue throughout the week. He was started on Levaquin empirically and a urine culture has grown Klebsiella pneumoniae, which was also grown in his blood culture. He has been slowly improving with the Levaquin therapy, which is appropriate based on recent urine culture. He has continued to spike fevers through yesterday. Late yesterday, I was consulted and advised placement of Palumbo catheter. In speaking with him this morning, he did have spasms from the catheter, but these have been controlled with oxybutynin. Overall, he feels much better than yesterday with no further subjective fevers. He denies flank pain, nausea, or chest pains. CT scan has been reviewed showing right hydronephrosis and mild left hydronephrosis. The right hydronephrosis is not new and I was unable to identify the right ureter on cystoscopy when he underwent his transurethral resection in October. The left collecting system was normal on cystoscopy and I suspect the hydronephrosis is secondary to reflux. PAST MEDICAL HISTORY: Quadriplegia, neurogenic bladder and bowel, autonomic dysreflexia, and bladder cancer. PAST SURGICAL HISTORY: Artificial sphincter placement and removal, requiring colostomy; resection of urinary sphincter; transurethral resection of bladder tumor. FAMILY HISTORY: No history of urologic malignancy. SOCIAL HISTORY: Nonsmoker. No substance abuse. REVIEW OF SYSTEMS: Ten-point review of systems is negative except as mentioned in my HPI. PHYSICAL EXAMINATION: VITAL SIGNS: Afebrile since yesterday, vitals are stable. Good urine output. GENERAL: No acute distress, conversant. HEENT: Head; normocephalic and atraumatic. Sclerae are nonicteric. Extraocular movements intact. NECK: Supple. Trachea midline. LUNGS: Breathing unlabored, symmetric chest expansion. HEART: Regular rate and rhythm. ABDOMEN: Soft, nontender, and nondistended. BACK: No flank tenderness. No suprapubic tenderness. GENITOURINARY: Palumbo catheter in good position, draining clear urine without debris at this point. SKIN: Warm and dry. EXTREMITIES: Without clubbing, cyanosis, or edema. NEUROLOGIC: Alert and oriented x3. PSYCHIATRIC: Normal mood and affect. LABORATORY DATA: Urine culture growing Klebsiella. Blood culture growing Klebsiella. White count 11. Creatinine 1.25. IMAGING DATA: CT has been reviewed as described in my HPI. ASSESSMENT AND PLAN: High-grade muscle invasive bladder cancer, status post 3 rounds chemotherapy with plans for likely cystectomy with conduit at [facility] later this month, hydronephrosis, acute cystitis. The patient has improved clinically with placement of Palumbo catheter. My plan was to have nephrostomy tube placed if he did not improve clinically. At this point , we will hold off on nephrostomy tube as the patient tells me he would like to avoid this if at all possible. Currently with the catheter alone, he is not having fevers and is not having any flank pain, with normal kidney function. Palumbo catheter to remain until early next week. Agree with Levaquin therapy as outpatient at this point. Job ID: [id number] [facility]
--- NOTE | 2020-03-02 14:39 | PDOC.MOPN ---
Interval History: no fevers. Palumbo cath in place - Vital Signs Vital Signs: Vital Signs (12 hours) Temp Pulse Resp BP Pulse Ox 03/02/20 11:15 98.1 F 87 18 147/81 H 93 L 03/02/20 07:19 98.6 F 89 20 134/76 90 L Weight Weight 144 lb - Physical Exam General: Alert, Oriented x3, No acute distress HEENT: Atraumatic, PERRLA, EOMI, Mucous membr. moist/pink Lungs: Clear to auscultation, Normal air movement Cardiovascular: Regular rate Abdomen: Normal bowel sounds, Soft, No tenderness, No hepatospenomegaly, No masses Neurological: Normal speech - Labs Result Diagrams: 03/02/20 05:06 03/02/20 05:06 Lab results: Laboratory Results - last 24 hr 03/02/20 05:06: WBC 11.1 H, RBC 3.24 L, Hgb 9.7 L, Hct 29.7 L, MCV 91.8, MCH 30.1, MCHC 32.8, RDW 15.1 H, Plt Count 104 L, MPV 8.9, Neutrophils % 75.4 H, Neutrophils % (Manual) Not Reportable, Lymphocytes % 11.5 L, Monocytes % 12.8 H , Eosinophils % 0.1, Basophils % 0.1, Neutrophils # 8.4 H, Lymphocytes # 1.3, Monocytes # 1.4 H, Eosinophils # 0.0, Basophils # 0.0 03/02/20 05:06: Sodium 134 L, Potassium 3.6, Chloride 104, Carbon Dioxide 21 L, Anion Gap 13, BUN 14, Creatinine 1.25, Estimated GFR (MDRD) 57, Glucose 109, Calcium 8.5 Status: lab reviewed by me A/P - Problem (1) Bacteremia due to Klebsiella pneumoniae Current Visit: Yes Code(s): R78.81 - BACTEREMIA; B96.1 - KLEBSIELLA PNEUMONIAE THE CAUSE OF DISEASES CLASSD ELSWHR Status: Acute (2) Bladder cancer Current Visit: Yes Status: Chronic - Plan Plan: Abx per Dr. Matias khan to dc from our perspective. Follow-up [facility] as scheduled.
[2020-03-02 16:04] VITALS: BP 152/83
== END 2020-03-02 18:47 | disposition home or self-care (01) | DRG 871 ==
LOC: ERS 22:15 → T4-B 02-28 06:10
PROVIDERS: ADMIT Internal Medicine; ATTEND Internal Medicine
PROC: 30233N1 Transfusion of Nonautologous Red Blood Cells into Peripheral Vein, Percutaneous Approach (ICD-10-PCS; 2020-02-29)
PROC: 0T9B70Z Drainage of Bladder with Drainage Device, Via Natural or Artificial Opening (ICD-10-PCS; principal; 2020-03-01)
DX: A41.59 Other Gram-negative sepsis (principal); G82.52 Quadriplegia, C1-C4 incomplete; D61.810 Antineoplastic chemotherapy induced pancytopenia; E87.1 Hypo-osmolality and hyponatremia; N13.6 Pyonephrosis; Z66 Do not resuscitate; Z20.828 Contact with and (suspected) exposure to other viral communicable diseases; C67.9 Malignant neoplasm of bladder, unspecified; E86.1 Hypovolemia; N18.3 Chronic kidney disease, stage 3 (moderate); T45.1X5A Adverse effect of antineoplastic and immunosuppressive drugs, initial encounter; N31.9 Neuromuscular dysfunction of bladder, unspecified; Z79.899 Other long term (current) drug therapy
CPT/HCPCS: 36415; 36430; 71045; 71260; 74177; 80048; 80053; 81003; 81015; 82553; 83605; 84484; 85007; 85025; 85027; 86850; 86900; 86901; 87040; 87077; 87086; 87149; 87186; 93005; 93970; 96365; 96367; J0692; J0696; J1642; J1956; J3370; J3490; P9016; Q9967; U0002